=== PATIENT | male | born 1965 | race Hispanic/Latino ===

== ENCOUNTER 2016-10-02 13:15 | Emergency (ER) | payer BC, OTHER ==
[2016-10-02 13:16] VITALS: BMI 30.2
--- NOTE | 2016-10-02 13:48 | ED PDOC ---
HPI: Psych/Substance Abuse Time Seen by Provider: 10/02/16 13:45 Chief Complaint (Nursing): Psychiatric Evaluation Chief Complaint (Provider): crisis History Per: Patient History/Exam Limitations: no limitations Modifying Factor(s): Alcohol, Cocaine Additional Complaint(s): 51yo male comes to the ED for crisis evaluation. Admits to suicidal ideations. States he drinks 5 bottles of alcohol daily and feels tremulous whenever he stops drinking. Admits to cocaine. Past Medical History Reviewed: Historical Data, Nursing Documentation, Vital Signs Vital Signs: Last Vital Signs Temp 97.1 F L 10/02/16 13:17 Pulse 76 10/02/16 13:17 Resp 14 10/02/16 13:17 BP 160/56 H 10/02/16 13:17 Pulse Ox 98 10/02/16 13:17 - Medical History PMH: Asthma, Atrial Fibrillation, COPD, Depression, Fractures (Left ankle rota cuff), HTN Denies: Diabetes, Hepatitis, HIV, Chronic Kidney Disease, Seizures, Sexually Transmitted Disease - Family History Family History: States: Unknown Family Hx - Social History Alcohol: > 2 Drinks/Day Drugs: Cannabis - Home Medications Home Medications: Ambulatory Orders Medication Instructions Recorded Albuterol HFA [Ventolin HFA 90 1 puff IH PRN PRN 07/09/16 mcg/actuation (8 g)] Fluticasone/Salmeterol 250/50 2 puff IH DAILY 07/09/16 [Advair Diskus 250/50] Metoprolol Tartrate [Lopressor] 25 mg PO BID 10/02/16 - Allergies Allergies/Adverse Reactions: Allergies Allergy/AdvReac Type Severity Reaction Status Date / Time No Known Allergies Allergy Verified 10/02/16 13:17 Review of Systems ROS Statement: Except As Marked, All Systems Reviewed And Found Negative Psych: Positive for: Depression, Suicidal ideation Physical Exam - Reviewed Nursing Documentation Reviewed: Yes Vital Signs Reviewed: Yes - Physical Exam Appears: Positive for: Well, Non-toxic, No Acute Distress Head Exam: Positive for: ATRAUMATIC, NORMAL INSPECTION, NORMOCEPHALIC Skin: Positive for: Warm, Dry Cardiovascular/Chest: Positive for: Regular Rate, Rhythm Respiratory: Positive for: Normal Breath Sounds. Negative for: Rales, Rhonchi, Wheezing Extremity: Positive for: Normal ROM Neurologic/Psych: Positive for: Other (tearful but not tremulous) - Laboratory Results Result Diagrams: 10/02/16 14:05 10/02/16 14:05 - ECG O2 Sat by Pulse Oximetry: 98 (RA) Pulse Ox Interpretation: Normal Medical Decision Making Medical Decision Makin: EKG, Labs including alcohol serum and drug screen, IV Fluids, Ativan 1mg ordered. Patient will require crisis evaluation after he is medically cleared. ED OBSERVATION Date of observation admission: 10/02/16 Time of observation admission: 14:24 - Observation admission statement Patient is being placed in observation because:: ETOH intoxication Disposition - Clinical Impression Clinical Impression: Alcohol abuse, Depression - Patient ED Disposition Is Patient to be Admitted: Transfer of Care - Disposition Disposition: Transfer of Care Disposition Time: 18:52 Condition: FAIR Patient Signed Over To: Justice Adan Additional Comments - Additional Comments Additional Comments: Documented by Jose Caballero acting as a scribe for Deo Rodriguez MD. All medical record entries made by the Scribe were at my direction and personally dictated by me. I have reviewed the chart and agree that the record accurately reflects my personal performance of the history, physical exam, medical decision making, and the department course for this patient. I have also personally directed, reviewed, and agree with the discharge instructions and disposition.
[2016-10-02] MEDS ORDERED: Sodium Chloride 0.9% 1,000 ML IV STA (13:51)
[2016-10-02 14:31] LABS: BASO # 0.1 K/uL (0.0-0.2); BASO % 1.4 % (0.0-2.0); EOS # 0.3 K/uL (0.0-0.7); EOS % 3.7 % (0.0-4.0); HEMATOCRIT 45.7 % (35.0-51.0); LYMPH # 1.5 K/uL (1.0-4.3); LYMPH % 20.4 % (20.0-40.0); MEAN CELL VOLUME 94.1 fl (80.0-94.0); MEAN PLATELET VOLUME 7.7 fl (7.2-11.7); MONO # 0.7 K/uL (0.0-0.8); MONO % 9.1 % (0.0-10.0); NEUT # 4.8 K/uL (1.8-7.0); NEUT % 65.4 % (50.0-75.0); NRBC % 0.1 % (0.0-0.0); RED CELL DISTRIBUTION WIDTH 13.7 % (11.5-14.5); WHITE BLOOD COUNT 7.3 K/uL (4.8-10.8)
[2016-10-02 14:39] LABS: ALB/GLOB RATIO 1.5 (1.0-2.1); ALKALINE PHOSPHATASE 52 U/L (38-126); ALT/SGPT 43 U/L (21-72); AST/SGOT 47 U/L (17-59); BILIRUBIN,TOTAL 0.6 mg/dl (0.2-1.3); BLOOD UREA NITROGEN 15 mg/dl (9-20); CALCIUM 9.1 mg/dL (8.4-10.2); CARBON DIOXIDE 22 mmol/L (22-30); CHLORIDE 108 mmol/L (98-107); GFR AFRICAN-AMERICAN > 60; GLUCOSE,RANDOM 97 mg/dL (75-110); POTASSIUM 3.9 MMOL/L (3.6-5.0); SODIUM 150 mmol/l (132-148); TOTAL PROTEIN 7.3 G/DL (6.3-8.2)
[2016-10-02 14:52] LABS: ALCOHOL SERUM 360 mg/dl (0-10)
--- NOTE | 2016-10-02 19:16 | ED PDOC ---
- Laboratory Results Result Diagrams: 10/02/16 14:05 10/02/16 14:05 - ECG O2 Sat by Pulse Oximetry: 98 (RA) - Critical Care Total Time (In Min): 30 Medical Decision Making Medical Decision Makin:00 Patient endorsed over to me by Deo Rodriguez MD, pending clinical sobriety, Crisis Evaluation, reevaluation and final disposition. pt intoxicated. 2310: Patient sober now. denies SI or HI.however complaining of chest pain and heart rate noted to be in 200s. EKG shows SVT. Adenosine 6mg, 6mg, then 12mg given with no break in SVT initially. Will try cardizem and ativan. (SVT possibly due to ETOH withdrawal?). Sadi cocaine use. Utox negative. Continue cardiac monitoring and O2 nasal cannula. 2351: SVT sponataneously broke and patient now in NSR in low 100s. Patient feels better. New set of electrolytes and troponin sent. Patient will be admitted under Dr. Cartagena's service and Wilton Bower made aware. Patient is non- suicidal and non-homicidal and will be taken off 1:1. 'labs reviewed troponin negative. K negative. dx svt Scribe Attestation: Documented by Ann Tai and Linden Ramirez acting as scribes for Justice Adan MD. Provider Scribe Attestation: All medical record entries made by the Scribe were at my direction and personally dictated by me. I have reviewed the chart and agree that the record accurately reflects my personal performance of the history, physical exam, medical decision making, and the department course for this patient. I have also personally directed, reviewed, and agree with the discharge instructions and disposition. Disposition Counseled Patient/Family Regarding: Studies Performed, Diagnosis, Need For Followup - Clinical Impression Clinical Impression: Alcohol abuse, Depression - POA Present On Arrival: None - Disposition Disposition: Routine/Home Disposition Time: 23:00 Condition: FAIR
[2016-10-03 00:41] LABS: ALKALINE PHOSPHATASE 46 U/L (38-126); ALT/SGPT 41 U/L (21-72); AST/SGOT 47 U/L (17-59); BILIRUBIN,TOTAL 0.6 mg/dl (0.2-1.3); BLOOD UREA NITROGEN 15 mg/dl (9-20); CARBON DIOXIDE 23 mmol/L (22-30); CHLORIDE 106 mmol/L (98-107); GFR AFRICAN-AMERICAN > 60; GLUCOSE,RANDOM 87 mg/dL (75-110); POTASSIUM 3.7 MMOL/L (3.6-5.0); SODIUM 145 mmol/l (132-148); TOTAL PROTEIN 6.7 G/DL (6.3-8.2)
[2016-10-03 00:44] LABS: ALB/GLOB RATIO 1.6 (1.0-2.1)
[2016-10-03] MEDS ORDERED: Albuterol HFA 90 mcg/actuation (8 g) IH PRN ×2 (06:31→11:37)
--- NOTE | 2016-10-03 07:07 | CP.PCM.HP ---
History of Present Illness - History of Present Illness History of Present Illness: pt was initialy in er for alcohol intox. per er noted pt had verbalixed SI at that time. when pt was to be dc by er staff no further is was verbalized but states that he did not feel right, had palpitaitions. was found to be in SVT rate 200. coverted w/ 3 rounds of adenosine. at present w/o compalitns except mild dysuria. pt has h/o svt but is noncompliant w/ therapy. smokes 1-2 ppd, drinks 5-6 drinks/day, poor diet, no exercise. has pmd/cardio but does not f/u. denies cp, dyspnea, palpitations at present, nsr on monitor bw and vs noted. etoh this am negative. no s/s withdrawal,, drug tox screen negative. no verbalized si. states would never hurt himself and would never sya he would hurt himself Present on Admission - Present on Admission Any Indicators Present on Admission: No Review of Systems - Cardiovascular Cardiovascular: As Per HPI, Chest Pain, Palpitations, Rapid Heart Rate Past Patient History - Infectious Disease Hx of Infectious Diseases: None - Past Social History Alcohol: > 2 Drinks/Day Drugs: Cannabis - CARDIAC Hx Cardiac Disorders: Yes - PULMONARY Hx Respiratory Disorders: Yes - NEUROLOGICAL Hx Neurological Disorder: No - HEENT Hx HEENT Problems: No - RENAL Hx Chronic Kidney Disease: No - ENDOCRINE/METABOLIC Hx Endocrine Disorders: No - HEMATOLOGICAL/ONCOLOGICAL Hx Blood Disorders: No - INTEGUMENTARY Hx Dermatological Problems: No - MUSCULOSKELETAL/RHEUMATOLOGICAL Hx Musculoskeletal Disorders: No - GASTROINTESTINAL Hx Gastrointestinal Disorders: No - GENITOURINARY/GYNECOLOGICAL Hx Genitourinary Disorders: No - PSYCHIATRIC Hx Psychophysiologic Disorder: Yes - SURGICAL HISTORY Hx Surgeries: Yes Other/Comment: Left shoulder. Left ankle - ANESTHESIA Hx Anesthesia: Yes Hx Anesthesia Reactions: No Meds Home Medications: Home Medication List Medication Instructions Recorded Confirmed Type Aspirin [Adult Low Dose Aspirin EC] 81 mg PO DAILY #30 tablet. 10/03/16 Rx RX: Metoprolol Tartrate [Lopressor] 25 mg PO BID #60 tab 10/03/16 Rx Allergies/Adverse Reactions: Allergies Allergy/AdvReac Type Severity Reaction Status Date / Time No Known Allergies Allergy Verified 10/02/16 13:17 Physical Exam - Constitutional Appears: Well, Non-toxic, No Acute Distress - Head Exam Head Exam: ATRAUMATIC, NORMAL INSPECTION, NORMOCEPHALIC - Eye Exam Eye Exam: EOMI, Normal appearance, PERRL Pupil Exam: NORMAL ACCOMODATION, PERRL - ENT Exam ENT Exam: Mucous Membranes Moist, Normal Exam - Neck Exam Neck exam: Positive for: Normal Inspection - Respiratory Exam Respiratory Exam: Clear to Auscultation Bilateral, NORMAL BREATHING PATTERN - Cardiovascular Exam Cardiovascular Exam: REGULAR RHYTHM, RRR, +S1, +S2 - GI/Abdominal Exam GI & Abdominal Exam: Normal Bowel Sounds, Soft. absent: Tenderness - Extremities Exam Extremities exam: Positive for: full ROM, normal capillary refill, normal inspection, pedal pulses present - Back Exam Back exam: NORMAL INSPECTION - Neurological Exam Neurological exam: Alert, CN II-XII Intact, Normal Gait, Oriented x3, Reflexes Normal - Psychiatric Exam Psychiatric exam: Normal Affect, Normal Mood - Skin Skin Exam: Dry, Intact, Normal Color, Warm Results - Vital Signs Recent Vital Signs: Last Vital Signs Temp 99 F 10/03/16 06:49 Pulse 81 10/03/16 06:49 Resp 15 10/03/16 06:49 BP 142/98 H 10/03/16 06:49 Pulse Ox 98 10/03/16 04:20 - Labs Result Diagrams: 10/03/16 07:00 10/03/16 08:21 Labs: Laboratory Results - last 24 hr 10/02/16 22:05 Urine Opiates Screen Negative Urine Methadone Screen Negative Ur Barbiturates Screen Negative Ur Phencyclidine Scrn Negative Ur Amphetamines Screen Negative U Benzodiazepines Scrn Negative U Oth Cocaine Metabols Negative U Cannabinoids Screen Negative Assessment & Plan (1) Alcohol abuse Assessment and Plan: refused info about counseling no s/s withdrawal Status: Acute (2) SVT (supraventricular tachycardia) Assessment and Plan: converted w/ adenosine in er metoporolol cleared by cardio outpt cardio/halter asa Status: Resolved (3) Hypertension Assessment and Plan: metoprolol Status: Acute (4) DVT prophylaxis Assessment and Plan: scd nad ae hose lovenox if admitted over 24h Status: Acute Decision To Admit - Pt Status Changed To: Hospital Disposition Of: Observation - . Bed Request Type: Telemetry Admitting Physician: Halie Cartagena
--- NOTE | 2016-10-03 08:42 | CP.PCM.CON ---
History of Present Illness - History of Present Illness History of Present Illness: 51yo male comes to the ED for crisis evaluation. States he drinks 5 bottles of alcohol daily and feels tremulous whenever he stops drinking. Admits to cocaine. Pt was in SVT Txed w/ adenosine and converted to NSR Apparently this is a recurring issue he is supposed to be on metoprolol @ home noncompliant Patient claims that this has happened to him several times in the past He is being followed by his private medical doctor has referred him to a counseling center manager as an outpatient He had a Holter monitor 1 year ago which showed the SVT Troponin: neg EKG: NSR PMH: Asthma, Atrial Fibrillation, COPD, Depression, Fractures (Left ankle rota cuff), HTN Past Patient History - Infectious Disease Hx of Infectious Diseases: None - Past Social History Alcohol: > 2 Drinks/Day Drugs: Cannabis - CARDIAC Hx Cardiac Disorders: Yes - PULMONARY Hx Respiratory Disorders: Yes - NEUROLOGICAL Hx Neurological Disorder: No - HEENT Hx HEENT Problems: No - RENAL Hx Chronic Kidney Disease: No - ENDOCRINE/METABOLIC Hx Endocrine Disorders: No - HEMATOLOGICAL/ONCOLOGICAL Hx Blood Disorders: No - INTEGUMENTARY Hx Dermatological Problems: No - MUSCULOSKELETAL/RHEUMATOLOGICAL Hx Musculoskeletal Disorders: No - GASTROINTESTINAL Hx Gastrointestinal Disorders: No - GENITOURINARY/GYNECOLOGICAL Hx Genitourinary Disorders: No - PSYCHIATRIC Hx Psychophysiologic Disorder: Yes - SURGICAL HISTORY Hx Surgeries: Yes Other/Comment: Left shoulder. Left ankle - ANESTHESIA Hx Anesthesia: Yes Hx Anesthesia Reactions: No Meds Allergies/Adverse Reactions: Allergies Allergy/AdvReac Type Severity Reaction Status Date / Time No Known Allergies Allergy Verified 10/02/16 13:17 - Medications Medications: Current Medications Albuterol (Ventolin Hfa 90 Mcg/Actuation (8 G)) 1 puff IH PRN PRN PRN Reason: Cough Metoprolol Tartrate (Lopressor) 25 mg PO BID [facility] Last Admin: 10/03/16 08:13 Dose: 25 mg Fluticasone/Salmeterol (Advair Diskus 250/50) 1 puff IH BID [facility] Results - Vital Signs Recent Vital Signs: Last Vital Signs Temp 99 F 10/03/16 06:49 Pulse 81 10/03/16 06:49 Resp 15 10/03/16 06:49 BP 142/98 H 10/03/16 06:49 Pulse Ox 98 10/03/16 04:20 - Labs Result Diagrams: 10/03/16 07:00 10/03/16 08:21 Labs: Laboratory Results - last 24 hr 10/02/16 22:05 Urine Opiates Screen Negative Urine Methadone Screen Negative Ur Barbiturates Screen Negative Ur Phencyclidine Scrn Negative Ur Amphetamines Screen Negative U Benzodiazepines Scrn Negative U Oth Cocaine Metabols Negative U Cannabinoids Screen Negative Assessment & Plan (1) SVT (supraventricular tachycardia) Assessment and Plan: The patient is now in a normal sinus rhythm. His likely went into SVT secondary to alcohol abuse. His recurring problem for the patient. He has a primary doctor and a counseling center manager as an outpatient. Was on metoprolol at home but has been noncompliant. The patient can be discharged and advised to take his metoprolol and follow up with his own doctor. Status: Resolved (2) Alcohol abuse Status: Acute (3) Depression Status: Acute (4) Hypertension Status: Acute
[2016-10-03 08:44] LABS: BASO # 0.1 K/uL (0.0-0.2); BASO % 1.4 % (0.0-2.0); EOS # 0.2 K/uL (0.0-0.7); EOS % 4.3 % (0.0-4.0); HEMATOCRIT 44.6 % (35.0-51.0); LYMPH % 20.2 % (20.0-40.0); MEAN CELL VOLUME 93.1 fl (80.0-94.0); MEAN CORPUSCULAR HEMOGLOBIN 31.9 pg (27.0-31.0); MEAN CORPUSCULAR HGB CONC 34.2 g/dL (33.0-37.0); MEAN PLATELET VOLUME 7.8 fl (7.2-11.7); MONO # 0.6 K/uL (0.0-0.8); MONO % 11.6 % (0.0-10.0); NEUT # 3.1 K/uL (1.8-7.0); NEUT % 62.5 % (50.0-75.0); NRBC % 0.1 % (0.0-0.0); RED CELL DISTRIBUTION WIDTH 13.5 % (11.5-14.5); WHITE BLOOD COUNT 4.9 K/uL (4.8-10.8)
[2016-10-03 08:58] LABS: ALB/GLOB RATIO 1.5 (1.0-2.1); ALCOHOL SERUM < 10 mg/dl (0-10); ALKALINE PHOSPHATASE 49 U/L (38-126); ALT/SGPT 41 U/L (21-72); AST/SGOT 40 U/L (17-59); BILIRUBIN,TOTAL 1.1 mg/dl (0.2-1.3); BLOOD UREA NITROGEN 16 mg/dl (9-20); CALCIUM 9.2 mg/dL (8.4-10.2); CARBON DIOXIDE 26 mmol/L (22-30); CHLORIDE 104 mmol/L (98-107); GFR AFRICAN-AMERICAN > 60; GLUCOSE,RANDOM 96 mg/dL (75-110); POTASSIUM 3.9 MMOL/L (3.6-5.0); SODIUM 142 mmol/l (132-148); TOTAL PROTEIN 6.7 G/DL (6.3-8.2)
[2016-10-03] MEDS ORDERED: Fluticasone-Salmeterol 250-50mcg Diskus IH SCH (09:00)
[2016-10-03 09:15] LABS: THYROID STIMULATING HORMONE 2.02 mIU/ML (0.46-4.68)
[2016-10-03 09:24] LABS: URINE APPEARANCE CLEAR (CLEAR); URINE BILIRUBIN NEGATIVE (NEGATIVE); URINE BLOOD NEGATIVE (NEGATIVE); URINE COLOR YELLOW (YELLOW); URINE GLUCOSE (UA) NEG (Normal); URINE KETONE TRACE mg/dL (NEGATIVE); URINE LEUKOCYTE ESTERASE NEG Leu/uL (Negative); URINE PROTEIN NEGATIVE (NEGATIVE); URINE UROBILINOGEN 0.2-1.0 mg/dL (0.2-1.0)
[2016-10-03 09:31] LABS: URINE WBC 0 - 2 /hpf (0-6)
[2016-10-03 10:38] VITALS: BP 151/90; PULSE 77; RESP 20; TEMP 98.3; O2SAT 96
--- NOTE | 2016-10-03 11:28 | CP.PCM.DIS ---
Provider - Provider Date of Admission: 10/02/16 14:22 Attending physician: Halie Cartagena MD Time Spent in preparation of Discharge (in minutes): 15 Hospital Course - Lab Results Lab Results: Most Recent Lab Values WBC 4.9 K/uL (4.8-10.8) 10/03/16 07:00 RBC 4.79 Mil/uL (4.40-5.90) 10/03/16 07:00 Hgb 15.3 g/dL (12.0-18.0) 10/03/16 07:00 Hct 44.6 % (35.0-51.0) 10/03/16 07:00 MCV 93.1 fl (80.0-94.0) 10/03/16 07:00 MCH 31.9 pg (27.0-31.0) H 10/03/16 07:00 MCHC 34.2 g/dL (33.0-37.0) 10/03/16 07:00 RDW 13.5 % (11.5-14.5) 10/03/16 07:00 Plt Count 255 K/uL (130-400) 10/03/16 07:00 MPV 7.8 fl (7.2-11.7) 10/03/16 07:00 Neut % (Auto) 62.5 % (50.0-75.0) 10/03/16 07:00 Lymph % (Auto) 20.2 % (20.0-40.0) 10/03/16 07:00 [place] % (Auto) 11.6 % (0.0-10.0) H 10/03/16 07:00 Eos % (Auto) 4.3 % (0.0-4.0) H 10/03/16 07:00 Baso % (Auto) 1.4 % (0.0-2.0) 10/03/16 07:00 Neut # 3.1 K/uL (1.8-7.0) 10/03/16 07:00 Lymph # 1.0 K/uL (1.0-4.3) 10/03/16 07:00 [place] # 0.6 K/uL (0.0-0.8) 10/03/16 07:00 Eos # 0.2 K/uL (0.0-0.7) 10/03/16 07:00 Baso # 0.1 K/uL (0.0-0.2) 10/03/16 07:00 Sodium 142 mmol/l (132-148) 10/03/16 08:21 Potassium 3.9 MMOL/L (3.6-5.0) 10/03/16 08:21 Chloride 104 mmol/L (98-107) 10/03/16 08:21 Carbon Dioxide 26 mmol/L (22-30) 10/03/16 08:21 Anion Gap 16 (10-20) 10/03/16 08:21 BUN 16 mg/dl (9-20) 10/03/16 08:21 Creatinine 0.7 mg/dL (0.8-1.5) L 10/03/16 08:21 Est GFR ( Amer) > 60 10/03/16 08:21 Est GFR (Non-Af Amer) > 60 10/03/16 08:21 Random Glucose 96 mg/dL (75-110) 10/03/16 08:21 Calcium 9.2 mg/dL (8.4-10.2) 10/03/16 08:21 Total Bilirubin 1.1 mg/dl (0.2-1.3) 10/03/16 08:21 AST 40 U/L (17-59) 10/03/16 08:21 ALT 41 U/L (21-72) 10/03/16 08:21 Alkaline Phosphatase 49 U/L (38-126) 10/03/16 08:21 Troponin I < 0.0120 ng/mL (0.00-0.120) 10/02/16 00:27 Total Protein 6.7 G/DL (6.3-8.2) 10/03/16 08:21 Albumin 4.0 g/dL (3.5-5.0) 10/03/16 08:21 Globulin 2.7 gm/dL (2.2-3.9) 10/03/16 08:21 Albumin/Globulin Ratio 1.5 (1.0-2.1) 10/03/16 08:21 TSH 3rd Generation 2.02 mIU/ML (0.46-4.68) 10/03/16 08:21 Urine Color Yellow (YELLOW) 10/03/16 08:21 Urine Appearance Clear (CLEAR) 10/03/16 08:21 Urine pH 6.0 (5.0-8.0) 10/03/16 08:21 Ur Specific [place] 1.019 (1.003-1.030) 10/03/16 08:21 Urine Protein Negative mg/dL (NEGATIVE) 10/03/16 08:21 Urine Glucose (UA) Neg mg/dL (Normal) 10/03/16 08:21 Urine Ketones Trace mg/dL (NEGATIVE) 10/03/16 08:21 Urine Blood Negative (NEGATIVE) 10/03/16 08:21 Urine Nitrate Negative (NEGATIVE) 10/03/16 08:21 Urine Bilirubin Negative (NEGATIVE) 10/03/16 08:21 Urine Urobilinogen 0.2-1.0 mg/dL (0.2-1.0) 10/03/16 08:21 Ur Leukocyte Esterase Neg Maki/uL (Negative) 10/03/16 08:21 Urine RBC 1 - 3 /hpf (0-2) 10/03/16 08:21 Urine WBC 0 - 2 /hpf (0-6) 10/03/16 08:21 Urine Opiates Screen Negative (NEGATIVE) 10/02/16 22:05 Urine Methadone Screen Negative (NEGATIVE) 10/02/16 22:05 Ur Barbiturates Screen Negative (NEGATIVE) 10/02/16 22:05 Ur Phencyclidine Scrn Negative (NEGATIVE) 10/02/16 22:05 Ur Amphetamines Screen Negative (NEGATIVE) 10/02/16 22:05 U Benzodiazepines Scrn Negative (NEGATIVE) 10/02/16 22:05 U Oth Cocaine Metabols Negative (NEGATIVE) 10/02/16 22:05 U Cannabinoids Screen Negative (NEGATIVE) 10/02/16 22:05 Alcohol, Quantitative < 10 mg/dl (0-10) 10/03/16 08:21 Discharge Exam - Head Exam Head Exam: ATRAUMATIC, NORMAL INSPECTION, NORMOCEPHALIC Discharge Plan - Discharge Medications Prescriptions: Aspirin [Adult Low Dose Aspirin EC] 81 mg PO DAILY #30 tablet. RX: Metoprolol Tartrate [Lopressor] 25 mg PO BID #60 tab - Follow Up Plan Condition: FAIR Disposition: HOME/ ROUTINE Additional Instructions: cleared by cardio w/ outpt cardio f/u. pt to see pmd and outpt cardio 1-2 days. stressed importantce of med compliacne dx alcohol intox, svt, flank pain- urine normal, pt wishes to be dc home, walking around unit. when intox had reportedly said to er staff SI. at present now sober that he would never say that and he would never hurt himself.
--- NOTE | 2016-10-03 11:45 | CARD ---
APPROVED REPORT EKG Measurement Heart [id number] <Conclusion> Normal sinus rhythm with sinus arrhythmia Normal ECG
== END 2016-10-03 11:28 | disposition home or self-care (01) ==
LOC: H.ER 13:15 → H.EROBSV 14:22 → UNDOADMOB 14:22 → H.EROBSV 23:56 → H.ERHOLD 23:56 → UNDODISOB 10-03 11:28
DX: F10.129 Alcohol abuse with intoxication, unspecified (principal); F32.9 Major depressive disorder, single episode, unspecified; I47.1 Supraventricular tachycardia; I48.91 Unspecified atrial fibrillation; J44.9 Chronic obstructive pulmonary disease, unspecified; R45.851 Suicidal ideations; Z91.19 Patient's noncompliance with other medical treatment and regimen; J45.909 Unspecified asthma, uncomplicated; I10 Essential (primary) hypertension
CPT/HCPCS: 80053; 81003; 81015; 84443; 84484; 85025; 87086; 93005; 96374; 96375; 96376; 99285; G0480; J0153; J2060; J7040

== ENCOUNTER 2016-10-03 14:11 | Emergency (ER) | payer BC, OTHER ==
[2016-10-03 14:11] VITALS: BMI 30.2
[2016-10-03 14:18] VITALS: BP 136/97; PULSE 72; RESP 18; TEMP 97.8; O2SAT 99
--- NOTE | 2016-10-03 15:00 | ED PDOC ---
HPI: Psych/Substance Abuse Time Seen by Provider: 10/03/16 14:30 Chief Complaint (Nursing): Alcohol Ingestion Chief Complaint (Provider): Alcohol Ingestion History Per: Patient History/Exam Limitations: intoxication Onset/Duration Of Symptoms: Hrs Current Symptoms Are (Timing): Still Present Additional Complaint(s): 51 y/o male who presents to the emergency department via EMS [place] Alcohol on breath upon arrival to the ER noted. Patient has many similar visits. Past Medical History Reviewed: Historical Data, Nursing Documentation, Vital Signs Vital Signs: Last Vital Signs Temp 97.8 F 10/03/16 14:16 Pulse 72 10/03/16 14:16 Resp 18 10/03/16 14:16 BP 136/97 H 10/03/16 14:16 Pulse Ox 99 10/03/16 14:16 - Medical History PMH: Asthma, Atrial Fibrillation, COPD, Depression, Fractures (Left ankle rota cuff), HTN Denies: Diabetes, Hepatitis, HIV, Chronic Kidney Disease, Seizures, Sexually Transmitted Disease - Family History Family History: States: Unknown Family Hx - Home Medications Home Medications: Ambulatory Orders Medication Instructions Recorded Albuterol HFA [Ventolin HFA 90 1 puff IH PRN PRN 07/09/16 mcg/actuation (8 g)] Fluticasone/Salmeterol 250/50 2 puff IH DAILY 07/09/16 [Advair Diskus 250/50] Aspirin [Adult Low Dose Aspirin EC] 81 mg PO DAILY #30 tablet. 10/03/16 Metoprolol Tartrate [Lopressor] 25 mg PO BID #60 tab 10/03/16 - Allergies Allergies/Adverse Reactions: Allergies Allergy/AdvReac Type Severity Reaction Status Date / Time No Known Allergies Allergy Verified 10/02/16 13:17 Review of Systems Review Of Systems: ROS cannot be obtained secondary to pt's inabilty to answer questions. Physical Exam - Reviewed Nursing Documentation Reviewed: Yes Vital Signs Reviewed: Yes - Physical Exam Appears: Positive for: Non-toxic, No Acute Distress Head Exam: Positive for: ATRAUMATIC, NORMOCEPHALIC Skin: Positive for: Normal Color, Warm, Dry Neurologic/Psych: Positive for: Gait (Unstable) - ECG O2 Sat by Pulse Oximetry: 99 (RA) Pulse Ox Interpretation: Normal Medical Decision Making Medical Decision Making: Time: 14:30 Initial impression: Alcohol Intoxication Initial plan: --Alcohol Serum Stat --AccuCheck 16:32:pt clinically sober with stable gait and normal speech, however pt admits to feeling syl. Pt with slight tremor. however pt has hx of DTs with SVT. Pt given ativan 1 mg PO. pte feels better, normal, VS normal HR. pt d/c home. advised on cessation of alcohol abuse. Scribe Attestation: Documented by Christa Andrews, acting as a scribe for Sandy Raymundo PA-C. Provider Scribe Attestation: All medical record entries made by the Scribe were at my direction and personally dictated by me. I have reviewed the chart and agree that the record accurately reflects my personal performance of the history, physical exam, medical decision making, and the department course for this patient. I have also personally directed, reviewed, and agree with the discharge instructions and disposition. Disposition - Clinical Impression Clinical Impression: Alcohol abuse - Patient ED Disposition Is Patient to be Admitted: No Counseled Patient/Family Regarding: Need For Followup - Disposition Disposition: Routine/Home Disposition Time: 16:33 Condition: IMPROVED
== END 2016-10-03 17:23 | disposition home or self-care (01) ==
LOC: H.ER 14:11
DX: I10 Essential (primary) hypertension (principal)
CPT/HCPCS: 82948; 99282; G0480

== ENCOUNTER 2016-10-05 12:45 | Observation (INO) | payer BC ==
--- NOTE | 2016-10-05 15:40 | ED PDOC ---
HPI: Psych/Substance Abuse Time Seen by Provider: 10/05/16 15:33 Chief Complaint (Nursing): Psychiatric Evaluation Chief Complaint (Provider): intoxicated ED Caveat: Intoxicated History Per: Patient Additional Complaint(s): 51yo M [place] ed [place] EMS [place] intoxicated with alcohol on breath stating he wanted to kill himself. pt states his abdomen hurt upon Ed arrival, crying stating he is lonely and SI. admits to living in the skilled nursing. pt with hx of SVT. pt with very unstable gait Past Medical History Reviewed: Historical Data, Nursing Documentation, Vital Signs Vital Signs: Last Vital Signs Temp 97 F L 10/05/16 12:51 Pulse 86 10/05/16 12:51 Resp 20 10/05/16 12:51 BP Pulse Ox - Medical History PMH: Asthma, Atrial Fibrillation, COPD, Depression, Fractures (Left ankle rota cuff), HTN Denies: Diabetes, Hepatitis, HIV, Chronic Kidney Disease, Seizures, Sexually Transmitted Disease - Family History Family History: States: Unknown Family Hx - Home Medications Home Medications: Ambulatory Orders Medication Instructions Recorded Albuterol HFA [Ventolin HFA 90 1 puff IH PRN PRN 07/09/16 mcg/actuation (8 g)] Fluticasone/Salmeterol 250/50 2 puff IH DAILY 07/09/16 [Advair Diskus 250/50] Aspirin [Adult Low Dose Aspirin EC] 81 mg PO DAILY #30 tablet. 10/03/16 Metoprolol Tartrate [Lopressor] 25 mg PO BID #60 tab 10/03/16 - Allergies Allergies/Adverse Reactions: Allergies Allergy/AdvReac Type Severity Reaction Status Date / Time No Known Allergies Allergy Verified 10/05/16 14:57 Review of Systems ROS Statement: Except As Marked, All Systems Reviewed And Found Negative Constitutional: Negative for: Weakness Cardiovascular: Negative for: Chest Pain, Palpitations Respiratory: Negative for: Cough Gastrointestinal: Positive for: Abdominal Pain Physical Exam - Reviewed Nursing Documentation Reviewed: Yes Vital Signs Reviewed: Yes - Physical Exam Appears: Positive for: No Acute Distress. Negative for: Non-toxic (intoxicated) Head Exam: Positive for: ATRAUMATIC, NORMAL INSPECTION, NORMOCEPHALIC Skin: Positive for: Warm (/flushed) Eye Exam: Positive for: EOMI, Normal appearance, PERRL Cardiovascular/Chest: Positive for: Regular Rate, Rhythm Respiratory: Positive for: CNT, Normal Breath Sounds Gastrointestinal/Abdominal: Positive for: Normal Exam, Bowel Sounds, Soft. Negative for: Tenderness Back: Positive for: Normal Inspection Extremity: Positive for: Normal ROM Neurologic/Psych: Positive for: Alert, Oriented, Mood/Affect (crying depressed with SI), Gait (very unstable.) - Laboratory Results Result Diagrams: 10/05/16 16:39 10/05/16 16:39 - ECG ECG Rhythm: Positive for: Normal QRS, Normal ST Segment, Sinus Rhythm Rate: 79 Pulse Ox Interpretation: Normal - Progress ED Course And Treament: pt will get crisis eval, paced one 1:1 for elopement and blood work. pt became agitated @ 1830 due to other pts aggression. was able to be verbally re-directed, accepted to received ativan IM pt HR became elevated to 120 EKG shows sinus tachycardia @ 117 normal QT interval no evidence of SVT at this time. pt placed in monitored room, given NS fluids and due to elevated BP 143/102 given metoprolol 50mg pt states that that he has hx of HTN. 2245 pt stable BP improving and stable HR. pt calm and cooperative. still on 1:1 Re-evaluation Time: 17:17 Condition: Re-examined (pt states he is having withdrawls and getting very anxious-pt given ativan po.no tremor noted, but pt flushed) ED OBSERVATION Date of observation admission: 10/05/16 Time of observation admission: 15:42 - Observation admission statement Patient is being placed in observation because:: intoxication - Goals of Observation Goals of observation are:: sobriety and crisis eval Disposition - Clinical Impression Clinical Impression: Hypertension, Alcohol abuse - Patient ED Disposition Is Patient to be Admitted: Transfer of Care - Disposition Disposition Time: 00:00 Condition: STABLE Patient Signed Over To: Rosa Hollingsworth Handoff Comments: pending crisis eval
[2016-10-05 17:02] VITALS: TEMP 98.1
[2016-10-05 17:13] LABS: BASO # 0.1 K/uL (0.0-0.2); BASO % 1.2 % (0.0-2.0); EOS # 0.1 K/uL (0.0-0.7); EOS % 1.3 % (0.0-4.0); HEMATOCRIT 49.5 % (35.0-51.0); LYMPH # 1.8 K/uL (1.0-4.3); LYMPH % 21.3 % (20.0-40.0); MEAN CELL VOLUME 94.4 fl (80.0-94.0); MEAN CORPUSCULAR HEMOGLOBIN 32.2 pg (27.0-31.0); MEAN CORPUSCULAR HGB CONC 34.1 g/dL (33.0-37.0); MEAN PLATELET VOLUME 7.3 fl (7.2-11.7); MONO # 0.4 K/uL (0.0-0.8); MONO % 5.4 % (0.0-10.0); NEUT # 5.8 K/uL (1.8-7.0); NEUT % 70.8 % (50.0-75.0); NRBC % 0.1 % (0.0-0.0); RED CELL DISTRIBUTION WIDTH 13.8 % (11.5-14.5); WHITE BLOOD COUNT 8.3 K/uL (4.8-10.8)
[2016-10-05 17:21] LABS: ALB/GLOB RATIO 1.5 (1.0-2.1); ALKALINE PHOSPHATASE 62 U/L (38-126); ALT/SGPT 53 U/L (21-72); AST/SGOT 54 U/L (17-59); BILIRUBIN,TOTAL 0.6 mg/dl (0.2-1.3); BLOOD UREA NITROGEN 19 mg/dl (9-20); CALCIUM 9.3 mg/dL (8.4-10.2); CARBON DIOXIDE 25 mmol/L (22-30); CHLORIDE 101 mmol/L (98-107); GFR AFRICAN-AMERICAN > 60; GLUCOSE,RANDOM 101 mg/dL (75-110); POTASSIUM 4.5 MMOL/L (3.6-5.0); SODIUM 147 mmol/l (132-148); TOTAL PROTEIN 7.8 G/DL (6.3-8.2)
[2016-10-05 17:31] LABS: ALCOHOL SERUM 313 mg/dl (0-10)
[2016-10-05] MEDS ORDERED: Sodium Chloride 0.9% 1,000 ML IV STA (20:14)
[2016-10-05 23:38] VITALS: BP 119/66; PULSE 86; RESP 14; O2SAT 95
--- NOTE | 2016-10-06 03:10 | ED PDOC ---
- Laboratory Results Result Diagrams: 10/05/16 16:39 10/05/16 16:39 - ECG O2 Sat by Pulse Oximetry: 95 - Progress ED Course And Treament: PATIENT SEEN BY CRISIS DIAGNOSIS ALCOHOL INTOXICATION CLEARED BY ADRIÁN FOR D/C Disposition - Clinical Impression Clinical Impression: Hypertension, Alcohol abuse - POA Present On Arrival: None - Disposition Disposition: Routine/Home Disposition Time: 03:10 Condition: STABLE
--- NOTE | 2016-10-06 09:02 | CARD ---
APPROVED REPORT EKG Measurement Heart [id number] CO [id number] [id number] <Conclusion> Normal sinus rhythm Normal ECG
== END 2016-10-06 03:14 | disposition home or self-care (01) ==
LOC: H.ER 12:45 → H.EROBSV 15:41
PROVIDERS: ADMIT Emergency Medicine; ATTEND Emergency Medicine
DX: I10 Essential (primary) hypertension (principal); F10.10 Alcohol abuse, uncomplicated; J45.909 Unspecified asthma, uncomplicated; Z00.8 Encounter for other general examination
CPT/HCPCS: 36415; 80053; 82948; 85025; 93005; 96360; 96372; 99285; G0378; G0480; J2060; J7040

== ENCOUNTER 2016-10-07 15:06 | Inpatient (IN) | payer BC, OTHER ==
[2016-10-07 15:06] VITALS: BMI 30.2
[2016-10-07 15:40] LABS: BASO # 0.2 K/uL (0.0-0.2); BASO % 1.6 % (0.0-2.0); EOS # 0.4 K/uL (0.0-0.7); EOS % 4.4 % (0.0-4.0); LYMPH % 20.6 % (20.0-40.0); MEAN CELL VOLUME 93.9 fl (80.0-94.0); MEAN CORPUSCULAR HEMOGLOBIN 31.9 pg (27.0-31.0); MONO # 1.4 K/uL (0.0-0.8); MONO % 14.4 % (0.0-10.0); NEUT # 5.9 K/uL (1.8-7.0); RED CELL DISTRIBUTION WIDTH 13.6 % (11.5-14.5); WHITE BLOOD COUNT 9.9 K/uL (4.8-10.8)
--- NOTE | 2016-10-07 15:43 | ED PDOC ---
HPI: Psych/Substance Abuse Time Seen by Provider: 10/07/16 15:12 Chief Complaint (Nursing): Psychiatric Evaluation Chief Complaint (Provider): Psychiatric Evaluation History Per: Patient History/Exam Limitations: no limitations Onset/Duration Of Symptoms: Hrs Current Symptoms Are (Timing): Still Present Additional Complaint(s): 51 y/o male with a past medical history of depression and alcoholism who presents to the emergency department via EMS after found on the street next to vomit intoxicated with substance overdose and alcohol. 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 Denies chest pain, taking other drugs or substances. History is unreliable due to intoxication. Of note, patient had similar visit in the ER on 07/24/2016. Past Medical History Reviewed: Historical Data, Nursing Documentation, Vital Signs Vital Signs: Last Vital Signs Temp 98.0 F 10/07/16 15:12 Pulse 91 H 10/07/16 15:12 Resp 16 10/07/16 15:12 BP 156/91 H 10/07/16 15:12 Pulse Ox 99 10/07/16 15:12 - Medical History PMH: Asthma, Atrial Fibrillation, COPD, Depression, Fractures (Left ankle rota cuff), HTN Denies: Diabetes, Hepatitis, HIV, Chronic Kidney Disease, Seizures, Sexually Transmitted Disease - Surgical History Surgical History: No Surg Hx - Family History Family History: States: Unknown Family Hx - Social History Current smoker - smoking cessation education provided: Yes (Heavy Smoker > 10 Cigarettes Daily) Alcohol: Occasional Drugs: Other - Home Medications Home Medications: Ambulatory Orders Medication Instructions Recorded Albuterol HFA [Ventolin HFA 90 1 puff INH Q8H PRN 07/09/16 mcg/actuation (8 g)] Fluticasone/Salmeterol 250/50 2 puff IH DAILY 07/09/16 [Advair Diskus 250/50] Aspirin [Adult Low Dose Aspirin EC] 81 mg PO DAILY #30 tablet. 10/03/16 Metoprolol Tartrate [Lopressor] 25 mg PO BID #60 tab 10/03/16 - Allergies Allergies/Adverse Reactions: Allergies Allergy/AdvReac Type Severity Reaction Status Date / Time No Known Allergies Allergy Verified 10/07/16 15:12 Review of Systems ROS Statement: Except As Marked, All Systems Reviewed And Found Negative Cardiovascular: Negative for: Chest Pain Gastrointestinal: Positive for: Vomiting (8 episodes). Negative for: Hematemesis Psych: Positive for: Depression, Suicidal ideation Physical Exam - Reviewed Nursing Documentation Reviewed: Yes Vital Signs Reviewed: Yes - Physical Exam Appears: Positive for: Non-toxic, In Acute Distress (Psychiatric distress; disheveled) Skin: Positive for: Normal Color, Warm, Dry Eye Exam: Positive for: EOMI, PERRL, Conjunctival injection. Negative for: Normal appearance ENT: Positive for: Normal ENT Inspection, Other (Tacky mucous membranes) Cardiovascular/Chest: Positive for: Regular Rate, Rhythm. Negative for: Murmur Respiratory: Positive for: Decreased Breath Sounds (Bilaterally). Negative for : Accessory Muscle Use, Respiratory Distress Gastrointestinal/Abdominal: Positive for: Normal Exam, Soft (protuberant belly) . Negative for: Tenderness Extremity: Positive for: Normal ROM. Negative for: Pedal Edema, Swelling Neurologic/Psych: Positive for: Oriented, Mood/Affect (Depressed), Other ( Suicidal thoughts with slurred speech). Negative for: Alert (Lethargic but talkative. Poor concentration.), Motor/Sensory Deficits - Laboratory Results Result Diagrams: 10/07/16 15:31 10/07/16 15:45 - ECG O2 Sat by Pulse Oximetry: 99 (RA) Pulse Ox Interpretation: Normal Medical Decision Making Medical Decision Making: Time: 15:12 Initial impression: Intoxication, depression and suicidal ideation differential include possible beta claire Initial plan: --Type and Screen Stat --Electrocardiogram Stat --Acetaminophen Stat --Alcohol Serum Stat --B-type natriuretic Peptide --COMP Metabolic Panel --Drug Screen, Urine stat --Magnesium Stat --Phosphorous Stat --Salicylate Stat --Troponin I Stat --ED Urine Dipstick (POC) Stat --EKG-ED (EDNURTX) Stat --CBC w/ differential --Partial Thromboplastin Time (COAG) --Prothrombin Time (COAG) --Chest Portable (RAD) --Osteopathy Doctor CONT --IV Insertion (SALINE LOCK) --AccuCheck --Urinary Catheter Insertion --1:1 Obs Scribe Attestation: Documented by Christa Andrews, acting as a scribe for Emely Ulrich MD. Provider Scribe Attestation: All medical record entries made by the Scribe were at my direction and personally dictated by me. I have reviewed the chart and agree that the record accurately reflects my personal performance of the history, physical exam, medical decision making, and the department course for this patient. I have also personally directed, reviewed, and agree with the discharge instructions and disposition. ED OBSERVATION Date of observation admission: 10/07/16 Time of observation admission: 15:23 - Observation admission statement Patient is being placed in observation because:: alcohol intoxication and substance abuse. - Goals of Observation Goals of observation are:: Stabilization for reported beta claire overdose Sobriety and psychiatric evaluation - Progress Note Progress Note: 10/07/16 16:13 Case discussed with poison control. Recommends toxicological work up and supportive treatment for now. At this time pt's vitals stable and h/o beta claire is questionable. Will continue to monitor for bradycardia or hypotension. 10/07/16 16:24 --Patient is agitated and trying to leave the ER by pulling all lines and monitors. Patient will be sedated and restrained for safety because of acute alcohol induced psychosis. --Alcohol level 383 19:30 Pt sleeping comfortably Repeat EKG, NSR, normal conduction Normotensive 21:30 Pt ate dinner. No bradycardia. Normotensive. When requestioned, he reports that he is suicidal and that he did take metoprolol in overdose. Clinical findings are not consistent with this. Pt is medically cleared for psychiatric evaluation , pending sobriety. 24:[address] Vanegas. Pending reeval and psych eval. Disposition - Clinical Impression Clinical Impression: Alcohol dependence, Depressive disorder - Disposition Disposition: Transfer of Care Disposition Time: 16:00 Condition: STABLE
[2016-10-07 16:03] LABS: ALB/GLOB RATIO 1.6 (1.0-2.1); ALKALINE PHOSPHATASE 46 U/L (38-126); ALT/SGPT 51 U/L (21-72); AST/SGOT 58 U/L (17-59); BLOOD UREA NITROGEN 13 mg/dl (9-20); CALCIUM 9.5 mg/dL (8.4-10.2); CARBON DIOXIDE 22 mmol/L (22-30); CHLORIDE 103 mmol/L (98-107); GFR AFRICAN-AMERICAN > 60; GLUCOSE,RANDOM 101 mg/dL (75-110); MAGNESIUM 2.1 MG/DL (1.6-2.3); PHOSPHOROUS 3.4 mg/dl (2.5-4.5); SODIUM 142 mmol/l (132-148)
[2016-10-07 16:08] LABS: POTASSIUM 4.1 MMOL/L (3.6-5.0)
[2016-10-07 16:18] LABS: ALCOHOL SERUM 383 mg/dl (0-10)
--- NOTE | 2016-10-07 16:22 | RAD ---
HISTORY: overdose COMPARISON: 07/23/2016. FINDINGS: LUNGS: No focal airspace opacity. PLEURA: No significant pleural effusion identified, no pneumothorax apparent. CARDIOVASCULAR: Normal. OSSEOUS STRUCTURES: No significant abnormalities. VISUALIZED UPPER ABDOMEN: Normal. OTHER FINDINGS: None. IMPRESSION: No focal airspace opacity. No significant interval change.
[2016-10-07 16:32] LABS: PARTIAL THROMBOPLASTIN TIME 26.4 SECONDS (23.3-32.5)
--- NOTE | 2016-10-08 00:38 | ED PDOC ---
- Laboratory Results Result Diagrams: 10/07/16 15:31 10/07/16 15:45 - ECG O2 Sat by Pulse Oximetry: 99 (RA) Medical Decision Making Medical Decision Makin:36 AM: Transfer of Care from Dr. Ulrich, patient pending crisis evaluation. Records reviewed. 5.25am Pt is accepted for voluntary admission by Dr Gonzales. Pt signed in at this time. Scribe Attestation: Documented by Silvana Webster, acting as a scribe for Hortensia Vanegas MD. Scribe Attestation: All medical record entries made by the Scribe were at my direction and personally dictated by me. I have reviewed the chart and agree that the record accurately reflects my personal performance of the history, physical exam, medical decision making, and the department course for this patient. I have also personally directed, reviewed, and agree with the discharge instructions and disposition. Disposition Counseled Patient/Family Regarding: Studies Performed, Diagnosis, Need For Followup - Clinical Impression Clinical Impression: Alcohol dependence, Depressive disorder - POA Present On Arrival: None - Disposition Disposition: Admitted as In-Patient Disposition Time: 05:24
[2016-10-08 05:24] VITALS: O2SAT 99
[2016-10-08] MEDS ORDERED: DiphenhydrAMINE 50 mg/ml Inj IM PRN (06:25)
[2016-10-08] MEDS ORDERED: Alum-Mag Hydrox-Simethicone Susp (30 mL) PO PRN (06:25)
[2016-10-08] MEDS ORDERED: Magnesium Hydroxide Susp 30 ml UD PO PRN (06:25)
[2016-10-08] MEDS ORDERED: Bismuth Subsalicylate 262 mg/15 ml Sus (240 ml) PO PRN (06:27)
--- NOTE | 2016-10-08 08:31 | CARD ---
APPROVED REPORT EKG Measurement Heart [id number] DE [id number] <Conclusion> Normal sinus rhythm Normal ECG
[2016-10-08 08:32] LABS: T4 8.93 ug/dl (5.5-11.0)
--- NOTE | 2016-10-08 08:33 | CARD ---
APPROVED REPORT EKG Measurement Heart [id number] DE 174P66 [id number] <Conclusion> Normal sinus rhythm Possible Left atrial enlargement Borderline ECG
[2016-10-08 08:47] LABS: THYROID STIMULATING HORMONE 2.82 mIU/ML (0.46-4.68)
[2016-10-08] MEDS: Multivitamin With Minerals Tab PO SCH (09:30)
[2016-10-08 10:22] LABS: RBC URINE 3 /hpf (0-3); URINE BILIRUBIN NEGATIVE (NEGATIVE); URINE BLOOD NEGATIVE (NEGATIVE); URINE COLOR YELLOW (YELLOW); URINE GLUCOSE (UA) NEG (Normal); URINE KETONE NEGATIVE (NEGATIVE); URINE LEUKOCYTE ESTERASE NEG Leu/uL (Negative); URINE PROTEIN NEGATIVE (NEGATIVE); URINE UROBILINOGEN 0.2-1.0 mg/dL (0.2-1.0); WBC URINE 2 /hpf (0-5)
--- NOTE | 2016-10-08 13:46 | PCM.PSYCH ---
Initial Psychiatric Evaluation - Initial Psychiatric Evaluation Type of Admission: Voluntary Legal Status: Capacity Chief Complaint (in patient's own words): i have to admit i lied to get in here Patient's Reaction to Hospitalization: ambivalent History of Present Illness and Precipitating Events: pt is an alcoholic and his life is in chaos. he admits to drinking 4 pints of vodka a day. he states he has a court date tomorrow and he and are being charged for insurance fraud. he is homeless and has lost his job several times since jul 2016 when he was last here. he has prefaced his visit with the treatment team with the confession that he lied about his symptoms in the ER to gain admission. apparently he was highly intoxicated and could not face the fdc. he is thinking outloud to himself if he should just leave the hospital or not. he is refusing referral to inpt treatment for alcohol dependence as he states he can't be away from work/family, etc and starts to cry and states "i can't lose my " he carries on about how she stays now with her brother who is a "major drug addict" and how pt is stressed because he cares for his whole family financially. Current Medications: Active Medications Generic Name Dose Route Start Last Admin Trade Name Freq PRN Reason Stop Dose Admin Acetaminophen 650 mg 10/08/16 06:25 Tylenol 325mg Tab PO Q4 PRN pain level 4-7 Al Hydrox/Mg Hydrox/Simethicone 30 ml 10/08/16 06:25 Maalox Plus 30 Ml PO Q4 PRN Dyspepsia Bismuth Subsalicylate 524 mg 10/08/16 06:27 Pepto-Bismol PO Q4 PRN Diarrhea Chlordiazepoxide 50 mg 10/08/16 09:00 10/08/16 05:24 Librium PO 50 mg Q8 DEBBIE Administration Diphenhydramine HCl 50 mg 10/08/16 06:25 Benadryl PO Q6 PRN Extrapyramidal Symptoms Diphenhydramine HCl 50 mg 10/08/16 06:25 Benadryl IM Q6 PRN Extrapyramidal S/S Unable PO Diphenhydramine HCl 50 mg 10/08/16 06:27 Benadryl PO HS PRN Sleep Folic Acid 1 mg 10/08/16 09:00 10/08/16 13:35 Folic Acid PO 1 mg DAILY DEBBIE Administration Haloperidol 5 mg 10/08/16 06:25 Haldol PO Q4 PRN Agitation Haloperidol Lactate 5 mg 10/08/16 06:25 Haldol IM Q4 PRN Agitation, Unable to Take PO Lorazepam 2 mg 10/08/16 06:25 10/08/16 08:56 Ativan PO 2 mg Q4 PRN Administration Anxiety/Agitation Lorazepam 2 mg 10/08/16 06:25 Ativan IM Q4 PRN Anxiety/Agitation,Unable PO Magnesium Hydroxide 30 ml 10/08/16 06:25 Milk Of Magnesia PO HS PRN Constipation Multivitamins/Minerals 1 tab 10/08/16 09:00 10/08/16 09:30 Therapeutic-M Tab PO 1 tab DAILY DEBBIE Administration Thiamine HCl 100 mg 10/08/16 09:00 10/08/16 09:32 Vitamin B1 Tab PO 100 mg DAILY DEBBIE Administration on librium for withdrawal Past Psychiatric History - Past Psychiatric History Previous Treatment History: Inpatient Prior Professional Help: does not folow up with [facility], hx of zoloft [facility]: was at [facility] in jul- he's been in the [facility] since History of Abuse: denies History of ETOH/Drug Use: drinks 4 pints a day of vodka. long history of alcohol dependence History of Family Illness: unknown Pertinent Medical Hx (Current Medical&Sleep Prob, Allergies): Allergies Allergy/AdvReac Type Severity Reaction Status Date / Time No Known Allergies Allergy Verified 10/07/16 15:12 Albuterol HFA [Ventolin HFA 90 mcg/actuation (8 g)] 1 puff INH Q8H PRN 07/09/16 Fluticasone/Salmeterol 250/50 [Advair Diskus 250/50] 2 puff IH DAILY 07/09/16 Aspirin [Adult Low Dose Aspirin EC] 81 mg PO DAILY #30 tablet. 10/03/16 Metoprolol Tartrate [Lopressor] 25 mg PO BID #60 tab 10/03/16 Review of Systems - Psychiatric Psychiatric: As Per HPI Mental Status Examination - Personal Presentation Personal Presentation: Looks stated age - Affect Affect: Constricted Additional comments: tearful - Motor Activity Motor Activity: Calm Additional comments: no tremors - Reliability in Providing Information Reliability in Providing Information: Other (pt has admitting to lying and is unreliable historian) - Speech Speech: Organized - Mood Mood: Depressed, Anxious - Formal Thought Process Formal Thought Process: No Impairment - Obsessions/Compulsions Obsessions: No Compulsions: No - Cognitive Functions Orientation: Person, Place, Situation, Time Sensorium: Alert Attention/Concentration: Attentive Abstract Thinking: Freedom Estimate of Intelligence: Average Judgement: Intact, as evidence by: Insight regarding need for hospitalization Memory: Recent intact, as evidence by: Ability to recall events of the day, Remote intact, as evidenced by: Abilit to recall sig. life events - Risk Risk: Suicidal (denies and reports he lied about being suicidal to get admitted) , Withdrawal (on librium), Diminished functioning - Strength & Assets Inventory Strength & Assets Inventory: Employment history - Limitations Limitations: Other (homeless, financial stress) DSM 5 DX - DSM 5 DSM 5 Diagnosis: alcohol dependence major depression recurrent - Recommended/Plan of Treatment Treatment Recommendations and Plan of Treatment: admit to [facility] for safety and observation gather collateral information provide supportive therapy adjust medications- on librium hospitalist consult t/c discharge tomorrow Projected ELOS: 3-5 days Prognosis: fair
--- NOTE | 2016-10-08 16:43 | CP.PCM.CON ---
History of Present Illness - History of Present Illness History of Present Illness: 51 yo male with recent history of SVT while intoxicated with alcohol 5 days ago admitted to psyche unit because of alcoholism Review of Systems - Review of Systems All systems: reviewed and no additional remarkable complaints except (aside from those mentioned above, 12 point system review were negative by me) Past Patient History - Infectious Disease Hx of Infectious Diseases: None - Past Social History Smoking Status: Heavy Smoker > 10 Cigarettes Daily Alcohol: > 2 Drinks/Day Drugs: Other - CARDIAC Hx Atrial Fibrillation: Yes Hx Cardia Arrhythmia: Yes Hx Hypertension: Yes - PULMONARY Hx Asthma: Yes Hx Chronic Obstructive Pulmonary Disease (COPD): Yes - NEUROLOGICAL Hx Seizures: No - HEENT Hx HEENT Problems: No - RENAL Hx Chronic Kidney Disease: No - ENDOCRINE/METABOLIC Hx Endocrine Disorders: No - HEMATOLOGICAL/ONCOLOGICAL Hx Human Immunodeficiency Virus (HIV): No - INTEGUMENTARY Hx Dermatological Problems: No - MUSCULOSKELETAL/RHEUMATOLOGICAL Hx Fractures: Yes (Left ankle rota cuff) - GASTROINTESTINAL Hx Gastrointestinal Disorders: No - GENITOURINARY/GYNECOLOGICAL Hx Sexually Transmitted Disorders: No - PSYCHIATRIC Hx Depression: Yes - SURGICAL HISTORY Hx Surgeries: Yes Other/Comment: Left shoulder. Left ankle - ANESTHESIA Hx Anesthesia: Yes Hx Anesthesia Reactions: No Meds Allergies/Adverse Reactions: Allergies Allergy/AdvReac Type Severity Reaction Status Date / Time No Known Allergies Allergy Verified 10/07/16 15:12 - Medications Medications: Current Medications Acetaminophen (Tylenol 325mg Tab) 650 mg PO Q4 PRN PRN Reason: pain level 4-7 Al Hydrox/Mg Hydrox/Simethicone (Maalox Plus 30 Ml) 30 ml PO Q4 PRN PRN Reason: Dyspepsia Bismuth Subsalicylate (Pepto-Bismol) 524 mg PO Q4 PRN PRN Reason: Diarrhea Chlordiazepoxide (Librium) 50 mg PO Q8 DEBBIE Last Admin: 10/08/16 05:24 Dose: 50 mg Diphenhydramine HCl (Benadryl) 50 mg PO Q6 PRN PRN Reason: Extrapyramidal Symptoms Diphenhydramine HCl (Benadryl) 50 mg IM Q6 PRN PRN Reason: Extrapyramidal S/S Unable PO Diphenhydramine HCl (Benadryl) 50 mg PO HS PRN PRN Reason: Sleep Folic Acid (Folic Acid) 1 mg PO DAILY [facility] Last Admin: 10/08/16 13:35 Dose: 1 mg Haloperidol (Haldol) 5 mg PO Q4 PRN PRN Reason: Agitation Haloperidol Lactate (Haldol) 5 mg IM Q4 PRN PRN Reason: Agitation, Unable to Take PO Lorazepam (Ativan) 2 mg PO Q4 PRN PRN Reason: Anxiety/Agitation Last Admin: 10/08/16 08:56 Dose: 2 mg Lorazepam (Ativan) 2 mg IM Q4 PRN PRN Reason: Anxiety/Agitation,Unable PO Magnesium Hydroxide (Milk Of Magnesia) 30 ml PO HS PRN PRN Reason: Constipation Multivitamins/Minerals (Therapeutic-M Tab) 1 tab PO DAILY [facility] Last Admin: 10/08/16 09:30 Dose: 1 tab Thiamine HCl (Vitamin B1 Tab) 100 mg PO DAILY [facility] Last Admin: 10/08/16 09:32 Dose: 100 mg Physical Exam - Constitutional Appears: No Acute Distress - Head Exam Head Exam: ATRAUMATIC - Eye Exam Eye Exam: absent: Scleral icterus - ENT Exam ENT Exam: Mucous Membranes Moist - Neck Exam Neck exam: Negative for: Meningismus - Respiratory Exam Respiratory Exam: absent: Rhonchi, Wheezes, Respiratory Distress - Cardiovascular Exam Cardiovascular Exam: REGULAR RHYTHM, +S1, +S2 - GI/Abdominal Exam GI & Abdominal Exam: Soft. absent: Tenderness - Rectal Exam Rectal Exam: Deferred - Neurological Exam Neurological exam: Alert, Oriented x3 - Psychiatric Exam Psychiatric exam: Normal Affect - Skin Skin Exam: Dry, Intact Results - Vital Signs Recent Vital Signs: Last Vital Signs Temp 98.1 F 10/08/16 09:00 Pulse 78 10/08/16 09:00 Resp 20 10/08/16 09:00 BP 155/95 H 10/08/16 09:00 Pulse Ox 99 10/08/16 14:36 - Labs Result Diagrams: 10/07/16 15:31 10/07/16 15:45 Labs: Laboratory Results - last 24 hr 10/08/16 10/08/16 07:41 10:09 Thyroxine (T4) 8.93 TSH 3rd Generation 2.82 Urine Color Yellow Urine Clarity Clear Urine pH 7.0 Ur Specific [place] 1.020 Urine Protein Negative Urine Glucose (UA) Neg Urine Ketones Negative Urine Blood Negative Urine Nitrate Negative Urine Bilirubin Negative Urine Urobilinogen 0.2-1.0 Ur Leukocyte Esterase Neg Urine RBC (Auto) 3 Urine Microscopic WBC 2 Assessment & Plan (1) Alcohol dependence Status: Acute Comment: psyche is managing (2) Hypertension Status: Chronic Comment: BP elevated. Metoprolol 25mg PO BID (3) COPD (chronic obstructive pulmonary disease) Status: Chronic Comment: asymptomatic. Advair 1 puff q 12hrs. Albuterol inhaler 2 puffs q 4hrs PRN
[2016-10-08] MEDS ORDERED: Albuterol HFA 90 mcg/actuation (8 g) INH PRN (16:48)
[2016-10-09] MEDS ORDERED: Fluticasone-Salmeterol 250-50mcg Diskus IH SCH (09:00)
[2016-10-09 09:12] VITALS: BP 131/86; PULSE 77; RESP 18; TEMP 97.5
[2016-10-09] MEDS: Multivitamin With Minerals Tab PO SCH (09:14)
--- NOTE | 2016-10-09 09:27 | PCM.PYCHDC ---
Mental Status Examination - Mental Status Examination Orientation: Person, Place, Situation, Time Memory: Intact Mood: Depressed Affect: Broad Speech: Appropriate Attention: WNL Concentration: WNL Association: WNL Fund of Knowledge: WNL Formal Thought Process: No Impairment Description of patient's judgement and insight: fair Suicidal Ideation: No Current Homicidal Ideation?: No Discharge Summary - Discharge Note Reason for Hospitalization: pt states he lied about his suicidal thought to obtain a place to stay Psychiatric History (includes Medical, Family, Personal Hx): history of alcohol dependence Laboratory Data: Abnormal Lab Results 10/08/16 10:09 Urine Color Yellow Urine Clarity Clear Urine pH 7.0 Ur Specific [place] 1.020 Urine Protein Negative Urine Glucose (UA) Neg Urine Ketones Negative Urine Blood Negative Urine Nitrate Negative Urine Bilirubin Negative Urine Urobilinogen 0.2-1.0 Ur Leukocyte Esterase Neg Urine RBC (Auto) 3 Urine Microscopic WBC 2 Consultations:: List each consultation separately and include: 1. Reason for request. 2. Findings. 3. Follow-up Consultations: seen by hospitalist Summary of Hospital Course include:: 1. Description of specific treatment plan utilized for patients during their course of treatmen. 2. Summarize the time- course for resolution of acute symptoms and/or regressed behaviors. 3. Describe issues identified and worked on during hospitalization. 4. Describe medication utilized. 5. Describe medical problems identified and treated. 6. Reassessment of suicide risk Summary of Hospital Course: pt is an alcoholic and his life is in chaos. he admits to drinking 4 pints of vodka a day. he states he has a court date tomorrow and he and are being charged for insurance fraud. he is homeless and has lost his job several times since jul 2016 when he was last here. he has prefaced his visit with the treatment team with the confession that he lied about his symptoms in the ER to gain admission. apparently he was highly intoxicated and could not face the senior living. he is thinking outloud to himself if he should just leave the hospital or not. he is refusing referral to inpt treatment for alcohol dependence as he states he can't be away from work/family, etc and starts to cry and states "i can't lose my " he carries on about how she stays now with her brother who is a "major drug addict" and how pt is stressed because he cares for his whole family financially. hospital course: pt admitted to [facility] and oriented to the unit. pt came to treatment team and stated he lied to get into the hospital. he did admit to heavy alcohol use and financial, housing and legal problems. he denied that he was suicidal. he wanted to leave the hospital. he refused recommendation to be referred to in substance abuse treatment. he admits he never follows up with aftercare recommendations. he demanded to be discharged. he was denying any suicidal or homicidal thoughts at time of discharge. there were no withdrawal symptoms. - Final Diagnosis (DSM 5) Condition upon Discharge: STABLE DSM 5: alcohol dependence depression unspecified Disposition: HOME/ ROUTINE Follow-up Treatment Plan: do not use alcohol tobacco or other illicit substances follow up with aftercare as directed take medications as prescribed attend aa meetings daily. - Smoking Cessation Smoking Cessation Medication prescribed: No Reason for not providing: declines - Antipsychotic Medications Pt discharged on 2 or more routine antipsychotic medications: No
== END 2016-10-09 12:00 | disposition home or self-care (01) | DRG 750 ==
LOC: H.ER 15:06 → H.EROBSV 16:03 → OBSVTOIN 10-08 05:22 → H.ERHOLD 10-08 05:22 → H.PSYCH 10-08 06:22
PROVIDERS: ADMIT Psychiatry & Neurology Psychiatry; ATTEND Psychiatry & Neurology Psychiatry
PROC: GZHZZZZ Group Psychotherapy (ICD-10-PCS; principal; 2016-10-08)
PROC: GZ58ZZZ Individual Psychotherapy, Cognitive-Behavioral (ICD-10-PCS; 2016-10-08)
DX: F10.229 Alcohol dependence with intoxication, unspecified (principal); J44.9 Chronic obstructive pulmonary disease, unspecified; F33.9 Major depressive disorder, recurrent, unspecified; I10 Essential (primary) hypertension; Y90.8 Blood alcohol level of 240 mg/100 ml or more; I48.91 Unspecified atrial fibrillation; J45.909 Unspecified asthma, uncomplicated; F17.210 Nicotine dependence, cigarettes, uncomplicated; Z65.3 Problems related to other legal circumstances; Z59.0 Homelessness

== ENCOUNTER 2016-10-09 15:11 | Observation (INO) | payer BC, OTHER ==
[2016-10-09 15:11] VITALS: BMI 30.2
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
[2016-10-09 16:30] LABS: BASO # 0.1 K/uL (0.0-0.2); EOS # 0.3 K/uL (0.0-0.7); EOS % 4.6 % (0.0-4.0); HEMATOCRIT 44.1 % (35.0-51.0); LYMPH # 1.4 K/uL (1.0-4.3); LYMPH % 19.3 % (20.0-40.0); MEAN CELL VOLUME 94.6 fl (80.0-94.0); MEAN CORPUSCULAR HGB CONC 33.8 g/dL (33.0-37.0); MONO # 0.7 K/uL (0.0-0.8); MONO % 9.6 % (0.0-10.0); NEUT # 4.8 K/uL (1.8-7.0); NEUT % 65.5 % (50.0-75.0); RED CELL DISTRIBUTION WIDTH 13.3 % (11.5-14.5); WHITE BLOOD COUNT 7.3 K/uL (4.8-10.8)
[2016-10-09 16:44] LABS: ALB/GLOB RATIO 1.6 (1.0-2.1); ALCOHOL SERUM 242 mg/dl (0-10); ALKALINE PHOSPHATASE 54 U/L (38-126); ALT/SGPT 78 U/L (21-72); AST/SGOT 75 U/L (17-59); BILIRUBIN,TOTAL 0.5 mg/dl (0.2-1.3); BLOOD UREA NITROGEN 11 mg/dl (9-20); CALCIUM 9.9 mg/dL (8.4-10.2); CARBON DIOXIDE 23 mmol/L (22-30); CHLORIDE 106 mmol/L (98-107); GFR AFRICAN-AMERICAN > 60; GLUCOSE,RANDOM 87 mg/dL (75-110); POTASSIUM 3.9 MMOL/L (3.6-5.0); SODIUM 146 mmol/l (132-148); TOTAL PROTEIN 7.2 G/DL (6.3-8.2)
[2016-10-09 18:02] LABS: RBC URINE < 1 /hpf (0-3); URINE BILIRUBIN NEGATIVE (NEGATIVE); URINE BLOOD NEGATIVE (NEGATIVE); URINE COLOR STRAW (YELLOW); URINE GLUCOSE (UA) NEG (Normal); URINE KETONE NEGATIVE (NEGATIVE); URINE LEUKOCYTE ESTERASE NEG Leu/uL (Negative); URINE PROTEIN NEGATIVE (NEGATIVE); URINE UROBILINOGEN 0.2-1.0 mg/dL (0.2-1.0); WBC URINE < 1 /hpf (0-5)
--- NOTE | 2016-10-10 04:06 | ED PDOC ---
- Laboratory Results Result Diagrams: 10/09/16 16:17 10/09/16 16:17 - ECG O2 Sat by Pulse Oximetry: 99 Medical Decision Making Medical Decision Making: Patient s/o from Dr. Martin at 0000 pending sobriety and crisis eval. Patient s /o to Dr. Adan at 0700 pending sobriety and crisis eval. Scribe Attestation: Documented by Linden Ramirez acting as a scribe for Hai Martinez MD. Provider Scribe Attestation: All medical record entries made by the Scribe were at my direction and personally dictated by me. I have reviewed the chart and agree that the record accurately reflects my personal performance of the history, physical exam, medical decision making, and the department course for this patient. I have also personally directed, reviewed, and agree with the discharge instructions and disposition. Disposition - Clinical Impression Clinical Impression: Alcohol abuse, Suicidal thoughts - POA Present On Arrival: None - Disposition Disposition: Transfer of Care Disposition Time: 23:48 Condition: STABLE Patient Signed Over To: Justice Adan Handoff Comments: pending sobriety and crisis eval
--- NOTE | 2016-10-10 07:13 | ED PDOC ---
- Laboratory Results Result Diagrams: 10/09/16 16:17 10/09/16 16:17 - ECG O2 Sat by Pulse Oximetry: 99 Medical Decision Making Medical Decision Making: Time: 0700 Patient signed out by Dr. 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 pt had cxr on 10/07 and was normal. so per crissi worker that is sufficient Time: 1425 At this time [facility] [place] [facility] staff feels that patient is more psyche. Patient is to be screen by [facility] [place] Time: 1700 Patient signed out to Dr. Vanegas pending [facility] [place] screening Scribe Attestation: Documented by Rachelle De acting as a scribe for Justice Adan MD MD Scribe Attestation: All medical record entries made by the Scribe were at my direction and personally dictated by me. I have reviewed the chart and agree that the record accurately reflects my personal performance of the history, physical exam, medical decision making, and the department course for this patient. I have also personally directed, reviewed, and agree with the discharge instructions and disposition. Disposition - Clinical Impression Clinical Impression: Alcohol abuse, Depressive disorder - POA Present On Arrival: None - Disposition Disposition: Admitted as In-Patient Disposition Time: 17:00 Condition: FAIR Patient Signed Over To: Hortensia Vanegas
--- NOTE | 2016-10-10 13:20 | RAD ---
HISTORY: for psych clearance COMPARISON: 10/07/2016 FINDINGS: LUNGS: The lungs are hyperinflated and there is peribronchial thickening with chronic changes in both lungs. There is no focal consolidation. PLEURA: No significant pleural effusion identified, no pneumothorax apparent. CARDIOVASCULAR: Normal. OSSEOUS STRUCTURES: No significant abnormalities. VISUALIZED UPPER ABDOMEN: Normal. OTHER FINDINGS: None. IMPRESSION: No active pulmonary disease. COPD.
[2016-10-10 14:54] VITALS: BP 150/82; PULSE 96; RESP 20; TEMP 97.9
[2016-10-10 16:43] VITALS: O2SAT 99
--- NOTE | 2016-10-10 17:12 | ED PDOC ---
- Laboratory Results Result Diagrams: 10/09/16 16:17 10/09/16 16:17 - ECG O2 Sat by Pulse Oximetry: 99 Medical Decision Making Medical Decision Makin:00 Patient is signed out to me by Justice Adan MD pending [facility] [place] screening, reevaluation, and final disposition. 19:00 Patient will be signed out by me to Hai Martinez MD pending [facility] [place] screening and final disposition. Scribe Attestation: Documented by Josselyn Nielsen acting as a scribe for Hortensia Vanegas MD MD Scribe Attestation: All medical record entries made by the Scribe were at my direction and personally dictated by me. I have reviewed the chart and agree that the record accurately reflects my personal performance of the history, physical exam, medical decision making, and the department course for this patient. I have also personally directed, reviewed, and agree with the discharge instructions and disposition. Disposition - Clinical Impression Clinical Impression: Alcohol abuse, Depressive disorder - POA Present On Arrival: None - Disposition Disposition: Transfer of Care Disposition Time: 19:00 Condition: FAIR
--- NOTE | 2016-10-10 18:32 | CARD ---
APPROVED REPORT EKG Measurement Heart [id number] <Conclusion> Normal sinus rhythm Normal ECG
--- NOTE | 2016-10-10 19:22 | ED PDOC ---
- Laboratory Results Result Diagrams: 10/09/16 16:17 10/09/16 16:17 - ECG O2 Sat by Pulse Oximetry: 99 Medical Decision Making Medical Decision Makin:00 Patient will be signed out to me by Hortensia Vanegas MD pending [facility] [place] screening and final disposition. 22:23 Upon evaluation by [facility], patient does not meet criteri for further screening. Patient is stable and will be discharged home. Counseling was provided and all questions were answered regarding diagnosis of alcoholism and depression disorder. There is agreement to discharge plan. Return if symptoms persist or worsen. Scribe Attestation: Documented by Josselyn Nielsen, acting as a scribe for Hai Martinez MD. Provider Scribe Attestation: All medical record entries made by the Scribe were at my direction and personally dictated by me. I have reviewed the chart and agree that the record accurately reflects my personal performance of the history, physical exam, medical decision making, and the department course for this patient. I have also personally directed, reviewed, and agree with the discharge instructions and disposition. Disposition - Clinical Impression Clinical Impression: Alcohol abuse, Depressive disorder - POA Present On Arrival: None - Disposition Disposition: Routine/Home Disposition Time: 22:23 Condition: STABLE
== END 2016-10-10 23:02 | disposition home or self-care (01) ==
LOC: H.ER 15:11 → H.EROBSV 23:48
PROVIDERS: ADMIT Emergency Medicine; ATTEND Emergency Medicine
DX: F10.129 Alcohol abuse with intoxication, unspecified (principal); Y90.8 Blood alcohol level of 240 mg/100 ml or more; R45.851 Suicidal ideations; F32.9 Major depressive disorder, single episode, unspecified; J45.909 Unspecified asthma, uncomplicated; I48.91 Unspecified atrial fibrillation; F17.210 Nicotine dependence, cigarettes, uncomplicated; J44.9 Chronic obstructive pulmonary disease, unspecified; Z78.1 Physical restraint status; I10 Essential (primary) hypertension; R45.1 Restlessness and agitation
CPT/HCPCS: 71010; 80053; 81003; 85025; 93005; 96372; 99285; G0378; G0480; J1630; J2060

== ENCOUNTER 2016-12-06 16:13 | Observation (INO) | payer BC, MEDICAID, OTHER ==
[2016-12-06 16:13] VITALS: BMI 30.2
[2016-12-06 16:20] VITALS: TEMP 99
--- NOTE | 2016-12-06 16:39 | ED PDOC ---
HPI: Psych/Substance Abuse Time Seen by Provider: 12/06/16 16:17 Chief Complaint (Nursing): Alcohol Ingestion Chief Complaint (Provider): Alcohol abuse History Per: Patient History/Exam Limitations: no limitations Onset/Duration Of Symptoms: Days (Today) Current Symptoms Are (Timing): Still Present Additional Complaint(s): Pt. found intoxicated on the street sitting so brought to the ED. Pt. denies any fall, headaches, dyspnea, weakness, numbness, tingles, chest pain, dyspnea. No neck pain. Denies any drugs. States drinking heavy alcohol for the past 5 days. Not suicidal or homicidal. Past Medical History Vital Signs: Last Vital Signs Temp 99 F 12/06/16 16:15 Pulse 99 H 12/06/16 16:15 Resp 16 12/06/16 16:15 BP 125/65 12/06/16 16:15 Pulse Ox 100 12/06/16 16:15 - Medical History PMH: Asthma, Atrial Fibrillation, COPD, Depression, Fractures (Left ankle rota cuff), HTN Denies: Diabetes, Hepatitis, HIV, Chronic Kidney Disease, Seizures, Sexually Transmitted Disease - Family History Family History: States: Unknown Family Hx - Social History Current smoker - smoking cessation education provided: No Alcohol: > 2 Drinks/Day Drugs: Denies - Immunization History Hx Tetanus Toxoid Vaccination: No Hx Influenza Vaccination: No - Home Medications Home Medications: Ambulatory Orders Medication Instructions Recorded Albuterol HFA [Ventolin HFA 90 1 puff INH Q8H PRN 07/09/16 mcg/actuation (8 g)] Fluticasone/Salmeterol 250/50 2 puff IH DAILY 07/09/16 [Advair Diskus 250/50] Aspirin [Adult Low Dose Aspirin EC] 81 mg PO DAILY #30 tablet. 10/03/16 Metoprolol Tartrate [Lopressor] 25 mg PO BID #60 tab 10/03/16 - Allergies Allergies/Adverse Reactions: Allergies Allergy/AdvReac Type Severity Reaction Status Date / Time No Known Allergies Allergy Verified 12/06/16 16:15 Review of Systems ROS Statement: Except As Marked, All Systems Reviewed And Found Negative Physical Exam - Reviewed Nursing Documentation Reviewed: Yes Vital Signs Reviewed: Yes - Physical Exam Appears: Positive for: Well, Non-toxic, No Acute Distress Head Exam: Positive for: ATRAUMATIC, NORMAL INSPECTION, NORMOCEPHALIC Skin: Positive for: Normal Color, Warm, DRY Eye Exam: Positive for: EOMI, Normal appearance, PERRL ENT: Positive for: Normal ENT Inspection Neck: Positive for: Normal, Painless ROM Cardiovascular/Chest: Positive for: Regular Rate, Rhythm Respiratory: Positive for: CNT, Normal Breath Sounds Gastrointestinal/Abdominal: Positive for: Normal Exam, Bowel Sounds, Soft. Negative for: Tenderness Back: Positive for: Normal Inspection. Negative for: L CVA Tenderness, R CVA Tenderness Extremity: Positive for: Normal ROM. Negative for: Tenderness, Pedal Edema Neurologic/Psych: Positive for: Alert, order booker II-XII, Oriented, Motor/Sensory Deficits - Laboratory Results Interpretation Of Abn Labs: 326 etoh - ECG O2 Sat by Pulse Oximetry: 100 - Progress ED Course And Treament: 183: Stable. AAOx3. Pending sobriety. Dr. Vanegas to take over care. ED OBSERVATION Date of observation admission: 12/06/16 Time of observation admission: 18:34 - Observation admission statement Patient is being placed in observation because:: Stable. pending sobriety and re-checks. - Goals of Observation Goals of observation are:: continue monitoring. Disposition - Clinical Impression Clinical Impression: Alcohol abuse - Patient ED Disposition Is Patient to be Admitted: No Counseled Patient/Family Regarding: Studies Performed, Diagnosis - Disposition Disposition Time: 18:33 Condition: STABLE Patient Signed Over To: Hortensia Vanegas
--- NOTE | 2016-12-06 19:29 | ED PDOC ---
- ECG O2 Sat by Pulse Oximetry: 100 (RA) Pulse Ox Interpretation: Normal Medical Decision Making Medical Decision Makin:00 Patient transferred over to provider from Dr. Keller. Pending clinical sobriety. 23.40 Pt is alert and awake. Ambulating with steady gait and speech is clear. Scribe Attestation: Documented by Jose Pierre, acting as a scribe for Hortensia Vanegas MD. Provider Scribe Attestation: All medical record entries made by the Scribe were at my direction and personally dictated by me. I have reviewed the chart and agree that the record accurately reflects my personal performance of the history, physical exam, medical decision making, and the department course for this patient. I have also personally directed, reviewed, and agree with the discharge instructions and disposition. Disposition Doctor Will See Patient In The: Office Counseled Patient/Family Regarding: Studies Performed, Diagnosis, Need For Followup - Clinical Impression Clinical Impression: Alcohol abuse - POA Present On Arrival: None - Disposition Disposition: Routine/Home Disposition Time: 23:43 Condition: FAIR
[2016-12-06 23:29] VITALS: RESP 20
[2016-12-06 23:40] VITALS: BP 162/84; PULSE 99
[2016-12-06 23:44] VITALS: O2SAT 100
== END 2016-12-06 23:45 | disposition home or self-care (01) ==
LOC: H.ER 16:13 → H.EROBSV 18:34
PROVIDERS: ADMIT Emergency Medicine; ATTEND Emergency Medicine
DX: F10.10 Alcohol abuse, uncomplicated (principal); I10 Essential (primary) hypertension

== ENCOUNTER 2017-09-04 10:27 | Emergency (ER) | payer BC ==
[2017-09-04 10:28] VITALS: BMI 30.2
[2017-09-04 11:16] VITALS: BP 127/97; PULSE 79; RESP 18; TEMP 98.2; O2SAT 96
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
--- NOTE | 2017-09-04 12:32 | RAD ---
PROCEDURE: Right Hand Radiographs. HISTORY: HAND INJURY COMPARISON: None. FINDINGS: BONES: Normal. No fracture. JOINTS: Normal. No osteoarthritic changes. SOFT TISSUES: Normal. OTHER FINDINGS: None. IMPRESSION: Normal right hand radiographs.
== END 2017-09-04 12:00 | disposition home or self-care (01) ==
LOC: H.ER 10:27
DX: S69.91XA Unspecified injury of right wrist, hand and finger(s), initial encounter (principal); I10 Essential (primary) hypertension; Z86.59 Personal history of other mental and behavioral disorders; J44.9 Chronic obstructive pulmonary disease, unspecified

== ENCOUNTER 2018-09-15 14:32 | Emergency (ER) | payer BC, OTHER ==
[2018-09-15 14:32] VITALS: BMI 30.2
[2018-09-15 14:56] VITALS: BP 129/73; TEMP 97.6
[2018-09-15] MEDS ORDERED: Albuterol-Ipratrop 3 mg / 0.5 (3 ml) UD INH STA (15:10)
[2018-09-15 15:11] VITALS: PULSE 77; RESP 17; O2SAT 96
[2018-09-15] MEDS ORDERED: Albuterol-Ipratrop 3 mg / 0.5 (3 ml) UD ONE (15:18)
--- NOTE | 2018-09-15 15:34 | ED PDOC ---
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 Patient states he was walking to the ER to be evaluated for the chest pain, and while walking, he had a syncopal episode which was witnessed by bystanders. Patient is unsure about the length of his syncopal episode, and currently denies any headache or known head injury. He states the chest pain was left sided, radiating to his back, and present for a couple minutes. Patient additionally states he has been non-compliant with his inhaler and other COPD medication as he "ran out." Of note, patient reports he drinks alcohol daily and admits to drinking alcohol this morning; also reports intermittent right abdominal pain, which he states is "liver" due to alcohol use. He denies any vomiting or bloody stools. Patient also states he felt like he was having an episode of SVT but used techniques and states the symptoms resolved prior to arrival. PMD: Dr. Walton Past Medical History Reviewed: Historical Data, Nursing Documentation, Vital Signs Vital Signs: Last Vital Signs Temp 97.6 F 09/15/18 14:55 Pulse 77 09/15/18 15:08 Resp 17 09/15/18 15:08 BP 129/73 09/15/18 15:08 Pulse Ox 96 09/15/18 15:08 - Medical History PMH: Asthma, Atrial Fibrillation, Cardia Arrhythmia, COPD, Depression, Fractures (Left ankle rota cuff), HTN Denies: Diabetes, Hepatitis, HIV, Chronic Kidney Disease, Seizures, Sexually Transmitted Disease - Surgical History Other surgeries: orthopedic surgery - Family History Family History: States: Unknown Family Hx - Immunization History Hx Tetanus Toxoid Vaccination: No Hx Influenza Vaccination: No - Home Medications Home Medications: Ambulatory Orders Medication Instructions Recorded Metoprolol Succinate XL [Toprol XL] 50 mg PO DAILY 09/15/18 - Allergies Allergies/Adverse Reactions: Allergies Allergy/AdvReac Type Severity Reaction Status Date / Time No Known Allergies Allergy Verified 09/15/18 18:42 Review of Systems ROS Statement: Except As Marked, All Systems Reviewed And Found Negative Cardiovascular: Positive for: Chest Pain Neurological: Positive for: Other (syncope). Negative for: Weakness, Numbness Psych: Negative for: Suicidal ideation Physical Exam - Reviewed Nursing Documentation Reviewed: Yes Vital Signs Reviewed: Yes - Physical Exam Appears: Positive for: Non-toxic, No Acute Distress Head Exam: Positive for: ATRAUMATIC, NORMAL INSPECTION, NORMOCEPHALIC Skin: Positive for: Normal Color, Warm Eye Exam: Positive for: EOMI, PERRL ENT: Positive for: Other (alcohol on breath) Neck: Positive for: Normal, Supple Cardiovascular/Chest: Positive for: Regular Rate, Rhythm Respiratory: Positive for: Wheezing. Negative for: Respiratory Distress Pulses-Radial (L): 2+ Pulses-Radial (R): 2+ Gastrointestinal/Abdominal: Positive for: Normal Exam, Soft Back: Positive for: Normal Inspection. Negative for: L CVA Tenderness, R CVA Tenderness Extremity: Positive for: Normal ROM. Negative for: Deformity Neurological/Psych: Positive for: Awake, Alert, Oriented (x3), Gait (steady). Negative for: Motor/Sensory Deficits - Laboratory Results Result Diagrams: 09/15/18 15:20 09/15/18 15:20 - ECG O2 Sat by Pulse Oximetry: 96 (RA) Pulse Ox Interpretation: Normal Medical Decision Making Medical Decision Making: Impression: Chest pain, syncope Differential: ACS, cardiac arrhythmia including AFib/SVT, alcohol abuse, and COPD Plan: -- Labs -- CT Head w/o contrast -- CT Angio chest -- Duoneb 3ml INH -- Solumedrol 125mg IV -- Toradol 30mg IVP -- UDS 1630 Patient left without treatment complete. Scribe Attestation: Documented by Juliette Ellington acting as a scribe for Hortensia Vanegas MD. Provider Attestation: All medical record entries made by the Scribe were at my direction and perso jose dictated by me. I have reviewed the chart and agree that the record accurately reflects my personal performance of the history, physical exam, medical decision making, and the department course for this patient. I have also personally directed, reviewed, and agree with the discharge instructions and disposition. Disposition - Clinical Impression Clinical Impression: Chest pain, COPD (chronic obstructive pulmonary disease), Alcohol abuse, Syncope - Patient ED Disposition Is Patient to be Admitted: No - Disposition Disposition: Left W/O Treatment Disposition Time: 16:30 Condition: UNKNOWN
[2018-09-15 15:43] LABS: BASO # 0.1 K/uL (0.0-0.2); BASO % 1.7 % (0.0-2.0); EOS # 0.2 K/uL (0.0-0.7); EOS % 3.6 % (0.0-4.0); HEMOGLOBIN 16.3 g/dL (12.0-18.0); LYMPH # 1.4 K/uL (1.0-4.3); LYMPH % 23.2 % (20.0-40.0); MEAN CELL VOLUME 96.9 fl (80.0-94.0); MEAN CORPUSCULAR HEMOGLOBIN 32.7 pg (27.0-31.0); MEAN CORPUSCULAR HGB CONC 33.7 g/dL (33.0-37.0); MEAN PLATELET VOLUME 7.8 fl (7.2-11.7); MONO # 0.7 K/uL (0.0-0.8); MONO % 11.8 % (0.0-10.0); NEUT # 3.7 K/uL (1.8-7.0); NEUT % 59.7 % (50.0-75.0); RBC 4.97 Mil/uL (4.40-5.90); RED CELL DISTRIBUTION WIDTH 13.5 % (11.5-14.5); WHITE BLOOD COUNT 6.2 K/uL (4.8-10.8)
[2018-09-15 15:46] LABS: PARTIAL THROMBOPLASTIN TIME 31.4 Seconds (25.6-37.1)
--- NOTE | 2018-09-15 15:53 | RAD ---
Date of service: 09/15/2018 PROCEDURE: CHEST RADIOGRAPH, 1 VIEW HISTORY: chest pain COMPARISON: 05/13/2017 FINDINGS: LUNGS: Clear. PLEURA: No pneumothorax or pleural fluid seen. CARDIOVASCULAR: No aortic atherosclerotic calcification present. Normal. OSSEOUS STRUCTURES: No significant abnormalities. VISUALIZED UPPER ABDOMEN: Normal. OTHER FINDINGS: None. IMPRESSION: No active disease. No acute/significant interval changes.
[2018-09-15] MEDS ORDERED: Sodium Chloride 0.9% 0 ML IV ONE (16:05)
[2018-09-15] MEDS ORDERED: Iodixanol 320 MG/ML 100 ML BOTTLE IV ONE (16:05)
[2018-09-15 16:08] LABS: ALB/GLOB RATIO 1.7 (1.0-2.1); ALBUMIN 4.5 g/dL (3.5-5.0); ALT/SGPT 64 U/L (21-72); AST/SGOT 81 U/L (17-59); BLOOD UREA NITROGEN 12 mg/dl (9-20); CALCIUM 9.5 mg/dL (8.4-10.2); GFR NON-AFRICAN AMERICAN > 60
--- NOTE | 2018-09-16 09:06 | CARD ---
APPROVED REPORT Date of service: 09/15/2018 EKG Measurement Heart [id number] <Conclusion> Normal sinus rhythm Normal ECG
== END 2018-09-15 16:10 | disposition left against medical advice (07) ==
LOC: H.ER 14:32 → H.ERHOLD 15:35 → UNDOADMIN 15:35 → H.ER 16:10
DX: R07.9 Chest pain, unspecified (principal); J44.9 Chronic obstructive pulmonary disease, unspecified; F10.10 Alcohol abuse, uncomplicated; R55 Syncope and collapse; I10 Essential (primary) hypertension; Z86.59 Personal history of other mental and behavioral disorders
CPT/HCPCS: 71045; 80053; 84484; 85025; 85610; 85730; 93005; 94640; 96374; 96375; 99284; G0480; J1885; J2930

== ENCOUNTER 2018-09-15 18:32 | Emergency (ER) | payer BC ==
[2018-09-15 18:39] VITALS: BMI 30.8
--- NOTE | 2018-09-15 20:30 | ED PDOC ---
HPI: Psych/Substance Abuse Time Seen by Provider: 09/15/18 18:59 Chief Complaint (Nursing): Alcohol Ingestion Chief Complaint (Provider): PSYCHIATRIC EVALUATION ED Caveat: Uncooperative History Per: Patient, EMS History/Exam Limitations: no limitations Onset/Duration Of Symptoms: Hrs Current Symptoms Are (Timing): Still Present Additional Complaint(s): 52 y/o male brought in by EMS for psychiatric evaluation. Patient presents for the second time today and previously came in with reported chest pain and RUQ pain then left AMA. Patient now brought in by EMS and police after being found stumbling in the street reportedly saying he was going to jump off a bridge. During interview, patient seen writhing in pain stating he has severe liver pa in. Patient states he has frequent runs of AFib that he stops by doing squats. Patient reports he does not feel like he is having one now. Patient states he wants to kill himself but wants to leave. Patient throwing himself off stretcher. Multiple attempts by nurse and staff unsuccessful in calming the patient. Patient seen trying to push the staff. Due to behavior and uncooperation, patient requiring medical sedation for protection of self and of ER staff. PMD: Past Medical History Reviewed: Historical Data, Nursing Documentation, Vital Signs Vital Signs: Last Vital Signs Temp 97.3 F L 09/15/18 18:37 Pulse 76 09/15/18 18:37 Resp 16 09/15/18 18:37 BP 130/92 H 09/15/18 18:37 Pulse Ox 95 09/15/18 18:37 - Medical History PMH: Asthma, Atrial Fibrillation, Cardia Arrhythmia, COPD, Depression, Fractures (Left ankle rota cuff), HTN Denies: Diabetes, Hepatitis, HIV, Chronic Kidney Disease, Seizures, Sexually Transmitted Disease - Surgical History Surgical History: No Surg Hx - Family History Family History: States: Unknown Family Hx - Immunization History Hx Tetanus Toxoid Vaccination: No Hx Influenza Vaccination: No - Home Medications Home Medications: Ambulatory Orders Medication Instructions Recorded Metoprolol Succinate XL [Toprol XL] 50 mg PO DAILY 09/15/18 - Allergies Allergies/Adverse Reactions: Allergies Allergy/AdvReac Type Severity Reaction Status Date / Time No Known Allergies Allergy Verified 09/15/18 18:42 Review of Systems ROS Statement: Except As Marked, All Systems Reviewed And Found Negative Gastrointestinal: Positive for: Abdominal Pain Psych: Positive for: Suicidal ideation, Other (PSYCHIATRIC EVALUATION) Physical Exam - Reviewed Nursing Documentation Reviewed: Yes Vital Signs Reviewed: Yes - Physical Exam Appears: Positive for: No Acute Distress Head Exam: Positive for: ATRAUMATIC, NORMOCEPHALIC Skin: Positive for: Normal Color, Warm, Dry Eye Exam: Positive for: Normal appearance, EOMI, PERRL Neck: Positive for: Normal, Painless ROM Cardiovascular/Chest: Positive for: Regular Rate, Rhythm. Negative for: Murmur Respiratory: Positive for: Normal Breath Sounds. Negative for: Respiratory Distress Gastrointestinal/Abdominal: Positive for: Tenderness (Questionable RUQ tenderness. otherwise nontender abd) Extremity: Positive for: Normal ROM. Negative for: Deformity Neurological/Psych: Positive for: Awake, Other (aggressive and uncooperative) - ECG O2 Sat by Pulse Oximetry: 95 (RA) Pulse Ox Interpretation: Normal Medical Decision Making Medical Decision Making: Time: 2005 A/P: Workup for RUQ tenderness. -- Labs from four hours previously show elevated AST. However, normal troponin. Rest of labs appeared normal. -- Will consider RUQ US when patient is calm and cooperative. -- Crisis evaluation when patient is no longer sedated -- Patient on monitor at this time with stable vitals -- Troponin I -- Crisis Evaluation -- Haldol 5 mg IM -- Ativan 2 mg IVP -- Toradol 15 mg IM -- 1:1 Observation -- Restraints 00:[address] Martinez by Dr. Rocha pending crisis evaluation and sobriety. Scribe Attestation: Documented by Harinder Sánchez, acting as a scribe Gideon Rocha MD. Provider Scribe Attestation: All medical record entries made by the Scribe were at my direction and personally dictated by me. I have reviewed the chart and agree that the record accurately reflects my personal performance of the history, physical exam, medical decision making, and the department course for this patient. I have also personally directed, reviewed, and agree with the discharge instructions and disposition. Disposition - Clinical Impression Clinical Impression: Alcohol-induced mood disorder - Disposition Disposition: Transfer of Care Disposition Time: 00:00 Condition: STABLE Instructions: Alcohol Use - When Is Drinking a Problem? Forms: Poppin (Azeri) Patient Signed Over To: Hai Martinez (pending crisis evaluation and sobriety )
--- NOTE | 2018-09-16 00:27 | ED PDOC ---
- Laboratory Results Lab Results: Troponin I < 0.0120 ng/mL (0.00-0.120) 09/15/18 23:44 - ECG O2 Sat by Pulse Oximetry: 95 (RA) Pulse Ox Interpretation: Normal Medical Decision Making Medical Decision Makin Patient endorsed to this provider by Dr. Rocha pending crisis evaluation and sobriety. 0200 Patient has troponin of less than 0.0120 and alcohol level of 232 0400 Patient's vitals are stable 0600 Patient is sleeping comfortably with stable vitals signs 0625 Patient evaluated by crisis and patient diagnosed with alcohol-induced mood disorder by Dr. Gonzales Upon provider evaluation patient is medically stable, and requires no further treatment in the ED at this time. Patient will be discharged home. Counseling was provided and all questions were answered regarding diagnosis. There is agreement to discharge plan. Return if symptoms persist or worsen. Scribe Attestation: Documented by Kayode Moise, acting as a scribe for Hai Martinez MD Provider Scribe Attestation: All medical record entries made by the Scribe were at my direction and personally dictated by me. I have reviewed the chart and agree that the record accurately reflects my personal performance of the history, physical exam, medical decision making, and the department course for this patient. I have also personally directed, reviewed, and agree with the discharge instructions and disposition. Disposition - Clinical Impression Clinical Impression: Alcohol-induced mood disorder - POA Present On Arrival: None - Disposition Disposition: Routine/Home Disposition Time: 06:25 Condition: STABLE Instructions: Alcohol Use - When Is Drinking a Problem? Forms: Pley (Scottish)
[2018-09-16 05:28] VITALS: RESP 16
[2018-09-16 05:42] VITALS: O2SAT 95
[2018-09-16 06:04] VITALS: BP 119/84; PULSE 83
[2018-09-16 06:32] VITALS: TEMP 98
== END 2018-09-16 06:53 | disposition home or self-care (01) ==
LOC: H.ER 18:32
DX: F10.94 Alcohol use, unspecified with alcohol-induced mood disorder (principal); Z86.59 Personal history of other mental and behavioral disorders; I10 Essential (primary) hypertension; J44.9 Chronic obstructive pulmonary disease, unspecified
CPT/HCPCS: 84484; 96372; 96374; 99285; G0480; J1630; J2060